=== PATIENT | female | born 1955 | race Caucasian/White ===

== ENCOUNTER 2021-12-08 11:15 | Outpatient (RCR) | payer OTHER, SELFPAY | END 2022-01-03 14:13 | disposition home or self-care (01) | PROVIDERS: Visit Provider Family Medicine | DX: M25.551 Pain in right hip (principal); Z51.89 Encounter for other specified aftercare | CPT/HCPCS: 97110; 97140; 97162 ==

== ENCOUNTER 2022-03-07 11:30 | Outpatient (CLI) | payer OTHER, SELFPAY | END 2022-03-07 11:31 | disposition home or self-care (01) | LOC: OP CLINIC 11:31 | PROVIDERS: PCP Family Medicine; Visit Provider Internal Medicine Gastroenterology | DX: Z12.11 Encounter for screening for malignant neoplasm of colon (principal); K57.30 Diverticulosis of large intestine without perforation or abscess without bleeding; K51.50 Left sided colitis without complications | CPT/HCPCS: 45380; 88305; 88342; 99153; J2250; J3010 ==

== ENCOUNTER 2025-03-14 08:10 | Outpatient (CLI) | payer MEDICARE, BC, SELFPAY ==
--- NOTE | 2025-03-14 09:53 | P.ANES_ITS ---
Anesthesia Charges Start Date/Time Anesthesia Start Date: 03/14/25 Anesthesia Start Time: 09:21 Stop Date/Time Anesthesia Stop Date: 03/14/25 Anesthesia Stop Time: 09:45 Coding CPT Codes CPT Codes: ANTHONY LWR INTST NDSC NOS - [id number] ([id number]) P2 - PATIENT W/MILD SYST DISEASE, QK - MONEY ROOM TELLER 2-4 CNCRNT ANES PROC, QX - LABVIEW PROGRAMMER SVC W/ MD MED DIRECTION
--- NOTE | 2025-03-14 09:53 | P.ANES_ITS ---
Anesthesia Charges Start Date/Time Anesthesia Start Date: 03/14/25 Anesthesia Start Time: 09:21 Stop Date/Time Anesthesia Stop Date: 03/14/25 Anesthesia Stop Time: 09:45 Coding CPT Codes CPT Codes: ANTHONY LWR INTST NDSC NOS - [id number] ([id number]) P2 - PATIENT W/MILD SYST DISEASE, QK - CUTTER OPERATOR BRICK 2-4 CNCRNT ANES PROC, QX - NUTRITION ASSOCIATE SVC W/ MD MED DIRECTION
--- NOTE | 2025-03-14 09:53 | W.ANESCHARGE ---
Anesthesia Charges Start Date/Time Anesthesia Start Date: 03/14/25 Anesthesia Start Time: 09:21 Stop Date/Time Anesthesia Stop Date: 03/14/25 Anesthesia Stop Time: 09:45 Coding CPT Codes CPT Codes: ANTHONY LWR INTST NDSC NOS - [id number] ([id number]) P2 - PATIENT W/MILD SYST DISEASE, QK - CONDOMINIUM ASSOCIATION MANAGER 2-4 CNCRNT ANES PROC, QX - DIGITAL COMMENTATOR SVC W/ MD MED DIRECTION
--- NOTE | 2025-03-14 09:53 | W.ANESCHARGE ---
Anesthesia Charges Start Date/Time Anesthesia Start Date: 03/14/25 Anesthesia Start Time: 09:21 Stop Date/Time Anesthesia Stop Date: 03/14/25 Anesthesia Stop Time: 09:45 Coding CPT Codes CPT Codes: ANTHONY LWR INTST NDSC NOS - [id number] ([id number]) P2 - PATIENT W/MILD SYST DISEASE, QK - ROOF BOLTER 2-4 CNCRNT ANES PROC, QX - DUCTFIXING PLUMBER SVC W/ MD MED DIRECTION
== END 2025-03-14 08:11 | disposition home or self-care (01) ==
LOC: OP CLINIC 08:18
PROVIDERS: PCP Family Medicine; Visit Provider Internal Medicine Gastroenterology
DX: K51.50 Left sided colitis without complications (principal); K57.30 Diverticulosis of large intestine without perforation or abscess without bleeding
CPT/HCPCS: 00811; 45380; J2704